=== PATIENT | male | born 1985 | race Asian ===

== ENCOUNTER 2017-09-26 08:25 | Day surgery (SDC) | payer OTHER ==
[2017-09-26] MEDS ORDERED: LACTATED RINGERS 1,000 ML IV ONE ×2 (08:38→10:03)
[2017-09-26] MEDS ORDERED: MIDAZOLAM 2 MG/2 ML VIAL IVP ONE (09:35)
[2017-09-26] MEDS ORDERED: fentaNYL 250 MCG/5 ML VIAL IVP ONE (09:35)
[2017-09-26 10:27] VITALS: BP 94/50
== END 2017-09-26 08:26 | disposition home or self-care (01) ==
LOC: SDS 08:25
PROVIDERS: ATTEND Internal Medicine
PROC: 0DB58ZX Excision of Esophagus, Via Natural or Artificial Opening Endoscopic, Diagnostic (ICD-10-PCS; principal; 2017-09-26 09:30)
DX: K21.9 Gastro-esophageal reflux disease without esophagitis (principal); R13.19 Other dysphagia
CPT/HCPCS: 43239; J3010; J7120; 88305

== ENCOUNTER 2019-06-15 19:10 | Emergency (ER) | payer OTHER ==
--- NOTE | 2019-06-15 19:24 | ED Physician Documentation ---
PD HPI CHEST PAIN - Stated complaint Stated Complaint: CP - Chief complaint Chief Complaint: Cardiac - History obtained from History obtained from: Patient - History of Present Illness Timing - onset: Today (33-year-old gentleman without history of coronary disease has had mild on and off chest pain all day that is nonexertional and seems to be if anything more associated with eating. He vacillates on whether or not he has been short of breath when I asked him, stating "maybe just because I am thinking about it more." There is no associated nausea or sweats. Although he has had some coronary disease in the family, nothing that would be positive for a positive family history by age, mostly people in their 80s. No recent travel, no calf pain or pedal edema. No cough.) Review of Systems Constitutional: denies: Fever, Chills, Fatigue Cardiac: denies: Palpitations Respiratory: denies: Dyspnea, Cough PD PAST MEDICAL HISTORY - Past Medical History Cardiovascular: None Endocrine/Autoimmune: None GI: GERD : None HEENT: Chronic vision loss, Other Psych: None Musculoskeletal: None Derm: None - Allergies Allergies/Adverse Reactions: Allergies Allergy/AdvReac Type Severity Reaction Status Date / Time No Known Drug Allergies Allergy Verified 06/15/19 19:13 PD ED PE NORMAL - Vitals Vital signs reviewed: Yes - General General: Alert and oriented X 3, No acute distress - Neck Neck: Supple, no meningeal sign, No bony TTP - Cardiac Cardiac: RRR, No murmur, Other (Equal radial pulses bilaterally) - Respiratory Respiratory: No respiratory distress, Clear bilaterally - Extremities Extremities: No edema, No calf tenderness / cord - Neuro Neuro: Alert and oriented X 3, Normal speech - Psych Psych: Normal mood, Normal affect Results - Vitals Vitals: Vital Signs - 24 hr 06/15/19 06/15/19 19:13 19:28 Temperature 36.8 C Heart Rate 71 Respiratory 18 Rate Blood Pressure 131/80 H [Right] O2 Saturation 97 Oxygen O2 Source Room air - EKG (time done) 1921 Rate: Rate (enter#) (74) Rhythm: NSR [place]: Normal Intervals: Normal [place] QRS: Normal Ischemia: Normal ST segments Computer interpretation: Agree with computer - Labs Labs: Laboratory Tests 06/15/19 06/15/19 06/15/19 19:30 19:30 19:30 WBC 9.2 RBC 4.68 L Hgb 13.9 L Hct 40.2 L MCV 85.9 MCH 29.7 MCHC 34.6 RDW 12.3 Plt Count 313 MPV 9.7 Neut # (Auto) 5.6 Lymph # (Auto) 2.5 [place] # (Auto) 0.7 Eos # (Auto) 0.4 Baso # (Auto) 0.1 Absolute Nucleated RBC 0.00 Nucleated RBC % 0.0 Sodium 137 Potassium 3.4 L Chloride 102 Carbon Dioxide 26 Anion Gap 9.0 BUN 16 Creatinine 1.0 Estimated GFR (MDRD) 85 L Glucose 95 Calcium 9.3 Total Bilirubin 0.6 AST 38 ALT 73 H Alkaline Phosphatase 33 L Troponin I High Sens < 2.3 L Total Protein 8.2 Albumin 5.0 Globulin 3.2 Albumin/Globulin Ratio 1.6 Lipase 47 - Rads (name of study) 2v chest Radiology: EMP read contemporaneously (normal) PD MEDICAL DECISION MAKING - ED course ED course: Dissection is considered but given equal radial pulses, lack of radiation to the back, no hypertension, and normal mediastinum on x-ray this is considered very unlikely. I considered pulmonary embolism in this patient. Clinically the pretest probability of pulmonary embolism is less than 15%. I applied to the PERC rules as follows: The patient's age is under 50, heart rate less than 100, oxygen saturation greater than 94%, the patient does not have a history of DVT or PE. Patient has no recent trauma or surgery. The patient has no hemoptysis. The patient is not on exogenous estrogens. The patient does not have clinical signs suggesting DVT. As such the patient ruled out for pulmonary embolism by PERC criteria. HEart score zero Departure - Departure Disposition: 01 Home, Self Care Clinical Impression: Atypical chest pain Condition: Good Record reviewed to determine appropriate education?: Yes Instructions: ED Chest Pain Atypical Unkn Cause Comments: Call your doctor to arrange a follow-up appointment, make the next available appointment. In the interim, return anytime if worse or if new symptoms develop.
[2019-06-15 19:53] LABS: BASOPHILS # (AUTO) 0.1 10^3/uL (0.0-0.1); BASOPHILS % (AUTO) 0.7 %; EOSINOPHILS # (AUTO) 0.4 10^3/uL (0.0-0.7); EOSINOPHILS % (AUTO) 4.3 %; HGB - HEMOGLOBIN 13.9 g/dL (14.0-18.0); LYMPHOCYTES # (AUTO) 2.5 10^3/uL (1.5-3.5); LYMPHOCYTES % (AUTO) 27.2 %; MEAN CORPUSCULAR HEMOGLOBIN 29.7 pg (27.0-31.0); MEAN CORPUSCULAR HGB CONC 34.6 g/dL (32.0-36.0); MEAN CORPUSCULAR VOLUME 85.9 fL (80.0-94.0); MEAN PLATELET VOLUME 9.7 fL (7.4-11.4); MONOCYTES # (AUTO) 0.7 10^3/uL (0.0-1.0); MONOCYTES % (AUTO) 7.2 %; NEUTROPHILS # (AUTO) 5.6 10^3/uL (1.5-6.6); NEUTROPHILS % (AUTO) 60.3 %; PLT - PLATELET COUNT 313 10^3/uL (130-450); RED BLOOD COUNT 4.68 10^6/uL (4.70-6.10); RED CELL DISTRIBUTION WIDTH 12.3 % (12.0-15.0); WHITE BLOOD COUNT 9.2 x10^3/uL (4.8-10.8)
[2019-06-15 20:00] LABS: ALBUMIN/GLOBULIN RATIO 1.6 (1.0-2.2); BILIRUBIN,TOTAL 0.6 mg/dL (0.2-1.0); CALCIUM 9.3 mg/dL (8.5-10.3); TOTAL PROTEIN 8.2 g/dL (6.7-8.2)
--- NOTE | 2019-06-15 20:26 | XRAY Report ---
Reason: chest pain Procedure Date: 06/15/2019 Accession Number: [id number] / [id number] Procedure: XR - Chest 2 View X-Ray CPT Code: 57852 Final Report FULL RESULT: EXAM: CHEST RADIOGRAPHY EXAM DATE: 06/15/2019 08:02 PM. CLINICAL HISTORY: Chest pain. COMPARISON: None. TECHNIQUE: 2 views. FINDINGS: LUNGS: The lungs are clear. PLEURA: No significant pleural effusion. No clinically significant pneumothorax. MEDIASTINUM: The cardiomediastinal silhouette is unremarkable. BONES: No suspicious osseous lesions. IMPRESSION: No acute cardiopulmonary abnormality. RADIA
[2019-06-15 20:40] VITALS: BP 124/80
== END 2019-06-15 20:41 | disposition home or self-care (01) ==
LOC: ED 19:10
DX: R07.89 Other chest pain (principal)
CPT/HCPCS: 36415; 71046; 80053; 83690; 84484; 85025; 93005; 99283; 99284